=== PATIENT | female | born 1975 | race Caucasian/White ===

== ENCOUNTER → 2023-08-31 | Outpatient (CLI) | payer MEDICAID ==
[~2023-08-31] MED LIST: CLIN-214 PO
== END | disposition home or self-care (01) ==
LOC: RAD 11:57
PROVIDERS: ATTEND Family Medicine
DX: M79.602 Pain in left arm (principal)
CPT/HCPCS: 73080

== ENCOUNTER 2024-05-15 09:15 | Emergency (ER) | payer MEDICAID ==
[~2024-05-15] VITALS: Ht 160 cm; Wt 69.5 kg
[2024-05-15 09:31] VITALS: BP 135/87; PULSE 102; TEMP 98.4; O2SAT 99
[2024-05-15] MEDS ORDERED: METO-292 PO (11:15)
[2024-05-15] MEDS ORDERED: DIPH25CA83 PO (11:15)
[2024-05-15] MEDS ORDERED: TRAZ-251 PO (11:15)
[2024-05-15 11:20] VITALS: RESP 16
== END 2024-05-15 11:21 | disposition home or self-care (01) ==
LOC: ER 09:16
DX: G43.909 Migraine, unspecified, not intractable, without status migrainosus (principal); G47.00 Insomnia, unspecified; F17.200 Nicotine dependence, unspecified, uncomplicated; Z88.0 Allergy status to penicillin
CPT/HCPCS: 99283